=== PATIENT | female | born 2000 | race Caucasian/White ===

== ENCOUNTER → 2021-12-16 16:22 | Outpatient (CLI) | payer OTHER, SELFPAY ==
[2021-12-16 19:18] LABS: Free T4, Direct Thyroxine 0.99 ng/dL (0.78-2.19)
[2021-12-16 19:32] LABS: Thyroid Stimulating Hormone 1.05 uIU/mL (0.47-4.68)
== END ==
PROVIDERS: Referring Provider Obstetrics & Gynecology; Visit Provider Obstetrics & Gynecology
DX: N93.9 Abnormal uterine and vaginal bleeding, unspecified (principal)
CPT/HCPCS: 36415; 84439; 84443